=== PATIENT | female | born 1945 | race Caucasian/White ===

== ENCOUNTER 2019-09-10 06:10 | Day surgery (SDC) | payer MEDICARE ==
[2019-09-09 13:27] VITALS: BMI 22.4
[2019-09-10] MEDS ORDERED: Midazolam HCl 2 mg/2 ml Vial ONE (06:47)
[2019-09-10] MEDS ORDERED: Fentanyl 100 MCG/2 ML VIAL ONE ×2 (06:47→09:04)
[2019-09-10 07:00] LABS: #Basophils 0.1 thou/uL (0.0-0.2); #Eosinphils 0.4 thou/uL (0.0-0.7); #Lymphocytes 2.8 thou/uL (1.20-3.40); #Monocytes 0.7 thou/uL (0.11-0.59); #Neutrophils 6.6 thou/uL (1.40-6.50); %Basophils 1.3 % (0.0-1.0); %Eosinophils 4.1 % (0.0-10.0); %Lymphocytes 26.4 % (21.0-51.0); %Monocytes 6.7 % (0.0-10.0); %Neutrophils 61.6 % (42.0-75.0); Hemoglobin 15.6 g/dL (12.0-16.0); Mean Corpuscular Hemoglobin 31.1 pg (27.0-31.0); Mean Corpuscular Volume 94.3 fL (78.0-98.0); Mean Platelet Volume 7.7 fL (7.4-10.4); Platelet Count 234 thou/uL (130-400); RBC Distribution Width 12.2 % (11.5-14.5); Red Blood Cell (RBC) Count 5.03 mill/uL (4.20-5.40); White Blood Cell (WBC) Count 10.8 thou/uL (4.8-10.8)
[2019-09-10 07:21] LABS: Anion Gap 14 mmol/L (10-20); BUN (Urea Nitrogen) 13 mg/dL (9.8-20.1); Calc. Creatinine Clearance 55 mL/min (70-130); Calcium 9.6 mg/dL (7.8-10.44); Carbon Dioxide 28 mmol/L (23-31); Chloride 102 mmol/L (98-107); Estimated GFR-MDRD 64; Glucose 114 mg/dL (83-110); Potassium 3.6 mmol/L (3.5-5.1); Sodium 140 mmol/L (136-145)
[2019-09-10] MEDS ORDERED: Ondansetron HCl/PF 4 MG/2 ML Vial IVP PRN (09:05)
[2019-09-10] MEDS ORDERED: Promethazine HCl 25 MG/ML VIAL IM/IV PRN (09:05)
[2019-09-10] MEDS ORDERED: Non-Formulary Medication 1 EACH PO PRN (09:05)
[2019-09-10] MEDS ORDERED: HYDROcodone/Acetaminophen 5/325 mg Tablet ONE (10:49)
--- NOTE | 2019-09-10 11:47 | OP ---
DATE OF PROCEDURE: 09/10/2019 HOP PICKER: Tatiana Lloyd PA-C PROCEDURE PERFORMED: Left L5-S1 microdiskectomy. DESCRIPTION OF PROCEDURE: The patient was brought to the operating room and intubated. She was rolled in a prone position on gel-filled chest rolls. An incision was made exposing L5 and S1 on the left. The level was confirmed by x-ray. We performed left L5-S1 hemilaminectomy and removed via ligament and beneath the left S1 nerve root, found an extruded disk herniation that was removed in multiple fragments. Complete decompression of left S1 was achieved. The wound was extensively irrigated. MAC hemostasis was secured. Vancomycin powder was applied and the wound was closed in anatomical layers. Job ID: [id number]
[2019-09-10] MEDS ORDERED: PROPOFOL 200 MG/20 ML VIAL ONE (12:50)
[2019-09-10] MEDS ORDERED: Ondansetron PF 4 MG/2 ML Vial ONE (12:50)
[2019-09-10] MEDS ORDERED: Dexamethasone 20 MG/5 ML VIAL ONE (12:50)
[2019-09-10] MEDS ORDERED: Glycopyrrolate 0.2 MG/ML 5 ML SYRINGE ONE (12:50)
[2019-09-10] MEDS ORDERED: Rocuronium Bromide 10 MG/ML (10ML VIAL) ONE (12:50)
== END 2019-09-10 11:37 | disposition home or self-care (01) ==
LOC: SDC 06:10
PROVIDERS: ATTEND Neurological Surgery
PROC: 0SB20ZZ Excision of Lumbar Vertebral Disc, Open Approach (ICD-10-PCS; principal; 2019-09-10)
PROC: 01NB0ZZ Release Lumbar Nerve, Open Approach (ICD-10-PCS; 2019-09-10)
DX: M51.17 Intervertebral disc disorders with radiculopathy, lumbosacral region (principal); I10 Essential (primary) hypertension; E78.5 Hyperlipidemia, unspecified; Z79.82 Long term (current) use of aspirin; Z79.899 Other long term (current) drug therapy; Z88.2 Allergy status to sulfonamides; Z91.048 Other nonmedicinal substance allergy status
CPT/HCPCS: 76000; 80048; 85025; 93005; 93010; J0690; J1100; J2250; J2405; J2704; J3010; J3370

== ENCOUNTER 2021-07-21 10:04 | Outpatient (CLI) | payer MEDICARE | END 2021-07-21 10:05 | disposition home or self-care (01) | LOC: RAD 10:04 | PROVIDERS: ATTEND Internal Medicine Critical Care Medicine | DX: R06.00 Dyspnea, unspecified (principal); R91.8 Other nonspecific abnormal finding of lung field | CPT/HCPCS: 71046 ==

== ENCOUNTER 2021-07-27 11:29 | Outpatient (CLI) | payer MEDICARE ==
[2021-07-27 23:11] LABS: SARS-CoV-2 PCR by NAA Not Detected (NotDetected)
== END 2021-07-27 11:30 | disposition home or self-care (01) ==
LOC: LABBT 11:29
PROVIDERS: ATTEND Internal Medicine Critical Care Medicine
DX: Z20.822 Contact with and (suspected) exposure to COVID-19 (principal)
CPT/HCPCS: U0003; U0005

== ENCOUNTER 2021-08-09 08:41 | Day surgery (SDC) | payer MEDICARE ==
[2021-07-31 13:54] VITALS: BMI 23.3
[2021-08-09 08:58] LABS: #Basophils 0.1 thou/uL (0.0-0.2); #Eosinphils 0.3 thou/uL (0.0-0.7); #Lymphocytes 2.2 thou/uL (1.20-3.40); #Monocytes 1.1 thou/uL (0.11-0.59); #Neutrophils 12.8 thou/uL (1.40-6.50); %Basophils 0.5 % (0.0-1.0); %Eosinophils 1.8 % (0.0-10.0); %Lymphocytes 13.2 % (21.0-51.0); %Monocytes 6.4 % (0.0-10.0); %Neutrophils 78.2 % (42.0-75.0); Hemoglobin 14.4 g/dL (12.0-16.0); Mean Corpuscular HGB CONC 34.8 g/dL (32.0-36.0); Mean Corpuscular Hemoglobin 32.3 pg (27.0-31.0); Mean Corpuscular Volume 92.9 fL (78.0-98.0); Mean Platelet Volume 6.9 fL (7.4-10.4); Platelet Count 270 thou/uL (130-400); Red Blood Cell (RBC) Count 4.45 mill/uL (4.20-5.40); White Blood Cell (WBC) Count 16.4 thou/uL (4.8-10.8)
[2021-08-09 09:11] LABS: INR-International Normal Ratio 1.1; PTT 31.2 sec (22.9-36.1); Prothrombin Time 14.2 sec (12.0-14.7)
[2021-08-09 09:59] VITALS: BP 162/92; TEMP 97.8
== END 2021-08-09 14:20 | disposition home or self-care (01) ==
LOC: CT 08:41
PROVIDERS: ATTEND Internal Medicine Critical Care Medicine
PROC: 0BBG3ZX Excision of Left Upper Lung Lobe, Percutaneous Approach, Diagnostic (ICD-10-PCS; principal; 2021-08-09)
DX: C34.12 Malignant neoplasm of upper lobe, left bronchus or lung (principal); J43.9 Emphysema, unspecified; I10 Essential (primary) hypertension; E78.5 Hyperlipidemia, unspecified; I25.10 Atherosclerotic heart disease of native coronary artery without angina pectoris; K21.9 Gastro-esophageal reflux disease without esophagitis; Z87.891 Personal history of nicotine dependence; Z79.82 Long term (current) use of aspirin; Z79.899 Other long term (current) drug therapy; Z88.2 Allergy status to sulfonamides; Z91.048 Other nonmedicinal substance allergy status
CPT/HCPCS: 71045; 71250; 77012; 85025; 85610; 85730; 88305; 88333

== ENCOUNTER 2021-08-25 10:25 | Outpatient (CLI) | payer MEDICARE | END 2021-08-25 10:26 | disposition home or self-care (01) | LOC: PET 10:25 | PROVIDERS: ATTEND Internal Medicine Hematology & Oncology | DX: C34.02 Malignant neoplasm of left main bronchus (principal); C78.1 Secondary malignant neoplasm of mediastinum; C77.1 Secondary and unspecified malignant neoplasm of intrathoracic lymph nodes | CPT/HCPCS: 78815; A9552 ==

== ENCOUNTER 2021-08-30 12:28 | Outpatient (CLI) | payer MEDICARE | END 2021-08-30 12:29 | disposition home or self-care (01) | LOC: MRI 12:28 | PROVIDERS: ATTEND Internal Medicine Hematology & Oncology | DX: R26.89 Other abnormalities of gait and mobility (principal); C34.02 Malignant neoplasm of left main bronchus | CPT/HCPCS: 70553 ==

== ENCOUNTER 2021-10-23 10:14 | Inpatient (IN) | payer MEDICARE ==
[2021-10-23 11:06] LABS: Mean Corpuscular Hemoglobin 31.4 pg (27.0-31.0); Mean Corpuscular Volume 92.2 fL (78.0-98.0); RBC Distribution Width 14.3 % (11.5-14.5); Red Blood Cell (RBC) Count 3.83 mill/uL (4.20-5.40); White Blood Cell (WBC) Count 0.1 thou/uL (4.8-10.8)
[2021-10-23 11:14] LABS: INR-International Normal Ratio 1.3; Prothrombin Time 16.2 sec (12.0-14.7)
[2021-10-23 11:15] LABS: PTT 41.3 sec (22.9-36.1)
[2021-10-23 11:20] LABS: ALT (SGPT) 16 U/L (8-55); AST (SGOT) 36 U/L (5-34); Albumin 3.5 g/dL (3.4-4.8); Alkaline Phosphatase 59 U/L (40-110); Anion Gap 18 mmol/L (10-20); BUN (Urea Nitrogen) 31 mg/dL (9.8-20.1); Bilirubin, Total 0.7 mg/dL (0.2-1.2); Calc. Creatinine Clearance 0 mL/min (70-130); Calcium 9.5 mg/dL (7.8-10.44); Carbon Dioxide 26 mmol/L (23-31); Chloride 94 mmol/L (98-107); Globulin 3.7 g/dL (2.4-3.5); Glucose 118 mg/dL (83-110); Potassium 3.7 mmol/L (3.5-5.1); Protein, Total 7.2 g/dL (5.8-8.1); Sodium 134 mmol/L (136-145)
[2021-10-23] MEDS ORDERED: Vancomycin 1 GM/200 ML BAG ONE (11:27)
[2021-10-23] MEDS ORDERED: Cefepime 2 GM VIAL ONE (11:27)
[2021-10-23] MEDS ORDERED: Iopamidol-370 76% 500 ML 1 ML ONE (11:36)
[2021-10-23 11:41] LABS: MDiff Complete? YES; Mean Platelet Volume 9.4 fL (7.4-10.4); Platelet Count 55 thou/uL (130-400); Platelet Morphology Comment Appears Decreased; Polychromasia SLIGHT = 2-3 cells (100X) (0-2/hpf)
[2021-10-23 11:58] LABS: CK (CPK) 386 U/L (29-168); Magnesium 1.4 mg/dL (1.6-2.6)
[2021-10-23] MEDS ORDERED: Lorazepam 1 MG TAB ONE (13:08)
[2021-10-23] MEDS ORDERED: Magnesium 2 GM/50 ML 2 GM in Premix Bag 1 BAG IVPB SCH (15:45)
[2021-10-23] MEDS ORDERED: Magnesium 2 GM/50 ML BAG (IN WATER) ONE (16:09)
[2021-10-23] MEDS ORDERED: Ondansetron ODT 4 MG TAB PO PRN (16:48)
[2021-10-23] MEDS ORDERED: Ondansetron PF 4 MG/2 ML Vial IVP PRN (16:48)
[2021-10-23] MEDS: Sodium Chloride 0.9% 1,000 ML IV SCH (17:06)
[2021-10-23 17:12] LABS: Clarity Clear (Clear); Specific Gravity, Urine 1.031 (1.002-1.036)
[2021-10-23 17:13] LABS: Bacteria/HPF Rare-Few HPF (None Seen); Bilirubin Negative (Negative); Blood, Urine Trace (Negative); Glucose, Urine (Dipstick) Normal (Negative); Ketone, Urine Negative (Negative); Leukocyte Negative Leu/uL (Negative); Nitrite Negative (Negative); Protein, Urine (Dipstick) 100 mg/dL (Neg-Trace); RBC/HPF 0-3 HPF (0-3); Squamous Epithelial 0-3 HPF (0-3); Urobilinogen Normal mg/dL (Less than 2); WBC/HPF 0-3 HPF (0-3); pH, Urine 5.5 (5.0-9.0)
[2021-10-23] MEDS ORDERED: Famotidine 20 MG TAB PO SCH (21:00)
[2021-10-23] MEDS ORDERED: Famotidine/PF 20 mg/2ml Vial ONE (21:11)
[2021-10-24] MEDS ORDERED: Lisinopril 10 MG TAB ONE (08:46)
[2021-10-24] MEDS ORDERED: Hydrochlorothiazide 25 MG TAB PO SCH (09:00)
[2021-10-24] MEDS ORDERED: Enoxaparin Sodium 40 MG/0.4 ML SYRINGE SC SCH (09:00)
[2021-10-24] MEDS ORDERED: Lisinopril 10 MG TAB PO SCH (09:00)
[2021-10-24] MEDS ORDERED: Pantoprazole 40 MG VIAL IVP SCH (09:15)
[2021-10-24 09:33] LABS: Anion Gap 16 mmol/L (10-20); BUN (Urea Nitrogen) 18 mg/dL (9.8-20.1); Calc. Creatinine Clearance 0 mL/min (70-130); Carbon Dioxide 21 mmol/L (23-31); Chloride 105 mmol/L (98-107); Glucose 98 mg/dL (83-110); Magnesium 1.6 mg/dL (1.6-2.6); Potassium 3.4 mmol/L (3.5-5.1); Sodium 139 mmol/L (136-145)
[2021-10-24 09:34] LABS: Hemoglobin 10.8 g/dL (12.0-16.0); Mean Corpuscular HGB CONC 33.1 g/dL (32.0-36.0); Mean Corpuscular Hemoglobin 31.2 pg (27.0-31.0); Mean Corpuscular Volume 94.1 fL (78.0-98.0); Mean Platelet Volume 9.5 fL (7.4-10.4); Platelet Count 41 thou/uL (130-400); RBC Distribution Width 14.3 % (11.5-14.5); Red Blood Cell (RBC) Count 3.45 mill/uL (4.20-5.40); White Blood Cell (WBC) Count 0.2 thou/uL (4.8-10.8)
[2021-10-24 10:04] LABS: MDiff Complete? YES; Platelet Morphology Comment Appears Decreased; Polychromasia SLIGHT = 2-3 cells (100X) (0-2/hpf)
[2021-10-24] MEDS ORDERED: Pantoprazole 40 MG VIAL ONE ×2 (10:22→23:43)
[2021-10-24] MEDS ORDERED: cefTRIAXone\\ROCEPHIN 1 GM in Sodium Chloride 0.9% 100 ML IVPB SCH (11:00)
[2021-10-24] MEDS ORDERED: Sucralfate 1 GM/10 ML UDCUP ONE ×2 (13:05→18:22)
[2021-10-24] MEDS ORDERED: methylPREDNISolone Sod Succ 40 MG VIAL ONE ×2 (13:05→18:22)
[2021-10-24] MEDS: Sucralfate 1 GM/10 ML UDCUP PO SCH ×2 (13:10→18:42)
[2021-10-24] MEDS ORDERED: cefTRIAXone\\ROCEPHIN 1 GM VIAL ONE (13:21)
[2021-10-24] MEDS: Sodium Chloride 0.9% 1,000 ML IV SCH ×2 (13:34→22:57)
[2021-10-24] MEDS: methylPREDNISolone Sod Succ 40 MG VIAL IVP SCH ×2 (13:35→18:42)
[2021-10-24] MEDS: Pantoprazole 40 MG VIAL IVP SCH (23:46)
[2021-10-25] MEDS: methylPREDNISolone Sod Succ 40 MG VIAL IVP SCH ×4 (05:21→17:48)
[2021-10-25] MEDS: Sucralfate 1 GM/10 ML UDCUP PO SCH ×3 (06:16→17:50)
[2021-10-25] MEDS: Sodium Chloride 0.9% 1,000 ML IV SCH ×3 (06:16→17:50)
[2021-10-25] MEDS ORDERED: Senokot S 8.6-50 MG TAB PO PRN (08:15)
[2021-10-25] MEDS ORDERED: Nitroglycerin 0.4 MG TAB (25 Tab Bottle) SL PRN (08:39)
[2021-10-25] MEDS: Pantoprazole 40 MG VIAL IVP SCH ×2 (09:35→21:11)
[2021-10-25] MEDS: Metoprolol Tartrate 25 MG TAB PO SCH ×2 (09:36→21:11)
[2021-10-25] MEDS: Cefepime 2 GM in Sodium Chloride 0.9% 100 ML IVPB SCH ×2 (09:36→17:49)
[2021-10-25 10:02] LABS: Troponin I 0.013 ng/mL (< 0.028)
[2021-10-25 10:13] LABS: ALT (SGPT) 25 U/L (8-55); AST (SGOT) 55 U/L (5-34); Albumin 2.7 g/dL (3.4-4.8); Alkaline Phosphatase 61 U/L (40-110); Anion Gap 17 mmol/L (10-20); BUN (Urea Nitrogen) 23 mg/dL (9.8-20.1); Bilirubin, Total 0.6 mg/dL (0.2-1.2); Calc. Creatinine Clearance 80 mL/min (70-130); Calcium 9.2 mg/dL (7.8-10.44); Carbon Dioxide 16 mmol/L (23-31); Chloride 106 mmol/L (98-107); Glucose 125 mg/dL (83-110); Magnesium 1.5 mg/dL (1.6-2.6); Phosphorus 2.9 mg/dL (2.3-4.7); Potassium 3.4 mmol/L (3.5-5.1); Protein, Total 6.7 g/dL (5.8-8.1); Sodium 136 mmol/L (136-145)
[2021-10-25] MEDS ORDERED: Vancomycin 1 GM in Premix Bag 1 BAG IVPB SCH (10:15)
[2021-10-25] MEDS ORDERED: Magnesium Sulfate 4 GM in Sodium Chloride 0.9% 250 ML 250 ML IVPB SCH (10:30)
[2021-10-25 10:35] LABS: Hemoglobin 11.3 g/dL (12.0-16.0); MDiff Complete? YES; Mean Corpuscular Volume 93.7 fL (78.0-98.0); Mean Platelet Volume 10.8 fL (7.4-10.4); Platelet Count 39 thou/uL (130-400); Platelet Morphology Comment Appears Decreased; Polychromasia SLIGHT = 2-3 cells (100X) (0-2/hpf); RBC Distribution Width 14.2 % (11.5-14.5); Red Blood Cell (RBC) Count 3.77 mill/uL (4.20-5.40); White Blood Cell (WBC) Count 0.3 thou/uL (4.8-10.8)
[2021-10-25 12:33] LABS: SARS-CoV-2 PCR by NAA DETECTED (NotDetected)
[2021-10-25] MEDS: Vancomycin 1.5 GRAM/300 ML BAG 1.5 GM in Premix Bag 1 BAG IVPB SCH (13:30)
[2021-10-25] MEDS ORDERED: Potassium Chloride 20 MEQ TAB PO SCH (16:30)
[2021-10-25] MEDS ORDERED: REMDESIVIR 200 MG in Sodium Chloride 0.9% 250 ML 210 ML IV SCH (16:30)
[2021-10-25 18:57] LABS: SARS-CoV-2 IgG Spike Ab Interp Reactive (NonReactive); SARS-CoV-2 IgG Spike Conc/Indx 252.4 AU/mL (0.00-50.0)
[2021-10-26] MEDS: Cefepime 2 GM in Sodium Chloride 0.9% 100 ML IVPB SCH ×3 (00:18→17:07)
[2021-10-26] MEDS: Albuterol 200 PUFF (6.7GM INHALER) INH PRN ×2 (03:54→21:46)
[2021-10-26] MEDS: Sodium Chloride 0.9% 1,000 ML IV SCH ×2 (03:54→14:38)
[2021-10-26 05:27] LABS: Mean Corpuscular HGB CONC 33.8 g/dL (32.0-36.0); Mean Corpuscular Hemoglobin 31.6 pg (27.0-31.0); Mean Corpuscular Volume 93.4 fL (78.0-98.0); Mean Platelet Volume 11.6 fL (7.4-10.4); Platelet Count 57 thou/uL (130-400); RBC Distribution Width 14.5 % (11.5-14.5); Red Blood Cell (RBC) Count 3.48 mill/uL (4.20-5.40); White Blood Cell (WBC) Count 0.4 thou/uL (4.8-10.8)
[2021-10-26 05:51] LABS: ALT (SGPT) 24 U/L (8-55); AST (SGOT) 45 U/L (5-34); Albumin 2.8 g/dL (3.4-4.8); Alkaline Phosphatase 60 U/L (40-110); Anion Gap 16 mmol/L (10-20); BUN (Urea Nitrogen) 28 mg/dL (9.8-20.1); Bilirubin, Total 0.4 mg/dL (0.2-1.2); Calc. Creatinine Clearance 79 mL/min (70-130); Calcium 9.3 mg/dL (7.8-10.44); Carbon Dioxide 20 mmol/L (23-31); Chloride 107 mmol/L (98-107); Globulin 3.9 g/dL (2.4-3.5); Glucose 124 mg/dL (83-110); Magnesium 1.5 mg/dL (1.6-2.6); Phosphorus 1.8 mg/dL (2.3-4.7); Potassium 3.9 mmol/L (3.5-5.1); Protein, Total 6.7 g/dL (5.8-8.1); Sodium 139 mmol/L (136-145)
[2021-10-26 06:03] LABS: Burr Cells MARKED = >16 cells (100X) (0-1/hpf); MDiff Complete? YES; Platelet Morphology Comment Appears Decreased; Polychromasia SLIGHT = 2-3 cells (100X) (0-2/hpf); Reflex for Review?? YES
[2021-10-26] MEDS ORDERED: Potassium Phosphate 15 MMOL in Sodium Chloride 0.9% 250 ML 250 ML IVPB SCH (08:00)
[2021-10-26] MEDS ORDERED: Magnesium Sulfate 4 GM in Sodium Chloride 0.9% 250 ML 250 ML IVPB SCH (08:00)
[2021-10-26] MEDS: Pantoprazole 40 MG VIAL IVP SCH ×2 (09:30→21:48)
[2021-10-26] MEDS: Potassium Bicarbonate/Cit Ac 20 MEQ TAB PO SCH ×2 (09:30→17:08)
[2021-10-26] MEDS: Dexamethasone 10 MG/ML VIAL SLOW IVP SCH (09:30)
[2021-10-26] MEDS: Metoprolol Tartrate 25 MG TAB PO SCH ×2 (09:31→21:48)
[2021-10-26] MEDS: Vancomycin 1.5 GRAM/300 ML BAG 1.5 GM in Premix Bag 1 BAG IVPB SCH (11:46)
[2021-10-26] MEDS: Acetaminophen 325 MG TAB PO PRN (21:47)
[2021-10-26] MEDS: REMDESIVIR 100 MG in Sodium Chloride 0.9% 250 ML 230 ML IV SCH (21:47)
[2021-10-27] MEDS: Cefepime 2 GM in Sodium Chloride 0.9% 100 ML IVPB SCH ×3 (00:16→16:40)
[2021-10-27] MEDS: HYDROcodone/Acetaminophen 5/325 mg Tablet PO PRN (00:17)
[2021-10-27] MEDS: Albuterol 200 PUFF (6.7GM INHALER) INH PRN ×2 (04:29→11:02)
[2021-10-27] MEDS: Sodium Chloride 0.9% 1,000 ML IV SCH ×2 (04:30→15:22)
[2021-10-27] MEDS ORDERED: Dexamethasone 4 MG TAB PO SCH (10:15)
[2021-10-27] MEDS: Potassium Bicarbonate/Cit Ac 20 MEQ TAB PO SCH ×3 (10:48→17:03)
[2021-10-27] MEDS: Metoprolol Tartrate 25 MG TAB PO SCH ×2 (10:48→21:09)
[2021-10-27] MEDS: Dexamethasone 10 MG/ML VIAL SLOW IVP SCH (11:12)
[2021-10-27] MEDS: Pantoprazole 40 MG VIAL IVP SCH (11:13)
[2021-10-27 11:21] LABS: ALT (SGPT) 27 U/L (8-55); AST (SGOT) 47 U/L (5-34); Albumin 2.8 g/dL (3.4-4.8); Alkaline Phosphatase 63 U/L (40-110); Anion Gap 21 mmol/L (10-20); BUN (Urea Nitrogen) 24 mg/dL (9.8-20.1); Bilirubin, Total 0.6 mg/dL (0.2-1.2); Calc. Creatinine Clearance 62 mL/min (70-130); Calcium 9.4 mg/dL (7.8-10.44); Carbon Dioxide 19 mmol/L (23-31); Chloride 108 mmol/L (98-107); Globulin 3.8 g/dL (2.4-3.5); Glucose 120 mg/dL (83-110); Magnesium 2.2 mg/dL (1.6-2.6); Phosphorus 2.6 mg/dL (2.3-4.7); Potassium 3.1 mmol/L (3.5-5.1); Protein, Total 6.6 g/dL (5.8-8.1); Sodium 145 mmol/L (136-145)
[2021-10-27] MEDS ORDERED: ALPRAZolam 0.25 MG TAB PO SCH (11:45)
[2021-10-27] MEDS: Vancomycin 1.5 GRAM/300 ML BAG 1.5 GM in Premix Bag 1 BAG IVPB SCH (11:45)
[2021-10-27 14:31] LABS: Hemoglobin 10.7 g/dL (12.0-16.0); Mean Corpuscular HGB CONC 33.2 g/dL (32.0-36.0); Mean Corpuscular Hemoglobin 31.7 pg (27.0-31.0); Mean Corpuscular Volume 95.6 fL (78.0-98.0); Mean Platelet Volume 11.3 fL (7.4-10.4); Platelet Count 61 thou/uL (130-400); RBC Distribution Width 14.8 % (11.5-14.5); Red Blood Cell (RBC) Count 3.39 mill/uL (4.20-5.40); White Blood Cell (WBC) Count 2.1 thou/uL (4.8-10.8)
[2021-10-27 16:05] LABS: Anisocytosis SLIGHT = 6-15 cells (100X) (0-5/hpf); Band 25 % (5-11); Large Platelets SLIGHT; Lymphocytes 11 % (21-51); MDiff Complete? YES; Metamyelocyte 4 % (0-0); Monocytes 10 % (0-10); Neutrophil 48 % (42-75); Nucleated RBC 1 % (0); Platelet Morphology Comment Appears Decreased; Polychromasia SLIGHT = 2-3 cells (100X) (0-2/hpf); Reactive Lymphocytes 2 % (0-10)
[2021-10-27] MEDS: 1/2 NS w/KCL 20 mEq 1,000 ML IV SCH (16:40)
[2021-10-27] MEDS: Dexamethasone 4 MG TAB PO SCH ×2 (16:40→17:02)
[2021-10-27] MEDS: REMDESIVIR 100 MG in Sodium Chloride 0.9% 250 ML 230 ML IV SCH (21:07)
[2021-10-27] MEDS: ALPRAZolam 0.25 MG TAB PO PRN ×2 (21:09→21:44)
[2021-10-28] MEDS: HYDROcodone/Acetaminophen 5/325 mg Tablet PO PRN ×2 (00:22→19:51)
[2021-10-28] MEDS: Cefepime 2 GM in Sodium Chloride 0.9% 100 ML IVPB SCH ×2 (00:22→10:16)
[2021-10-28] MEDS: 1/2 NS w/KCL 20 mEq 1,000 ML IV SCH (03:36)
[2021-10-28] MEDS ORDERED: 1/2 NS w/KCL 20 mEq 1,000 ML IV SCH (09:02)
[2021-10-28] MEDS ORDERED: Furosemide 20 MG/2 ML VIAL SLOW IVP SCH (09:15)
[2021-10-28] MEDS: ALPRAZolam 0.25 MG TAB PO PRN (10:17)
[2021-10-28] MEDS: Metoprolol Tartrate 25 MG TAB PO SCH ×2 (10:17→19:51)
[2021-10-28] MEDS: Dexamethasone 4 MG TAB PO SCH ×2 (10:17→16:53)
[2021-10-28] MEDS: Vancomycin 1.5 GRAM/300 ML BAG 1.5 GM in Premix Bag 1 BAG IVPB SCH (12:19)
[2021-10-28] MEDS: Potassium Bicarbonate/Cit Ac 20 MEQ TAB PO SCH ×3 (12:20→16:54)
[2021-10-28] MEDS: cefTRIAXone\\ROCEPHIN 2 GM in Sodium Chloride 0.9% 100 ML IVPB SCH (16:52)
[2021-10-28 18:36] LABS: Phosphorus 2.9 mg/dL (2.3-4.7)
[2021-10-28 18:39] LABS: ALT (SGPT) 29 U/L (8-55); AST (SGOT) 51 U/L (5-34); Albumin 2.9 g/dL (3.4-4.8); Alkaline Phosphatase 72 U/L (40-110); Anion Gap 17 mmol/L (10-20); BUN (Urea Nitrogen) 20 mg/dL (9.8-20.1); Bilirubin, Total 0.8 mg/dL (0.2-1.2); Calc. Creatinine Clearance 64 mL/min (70-130); Carbon Dioxide 22 mmol/L (23-31); Chloride 105 mmol/L (98-107); Globulin 3.4 g/dL (2.4-3.5); Glucose 87 mg/dL (83-110); Hemoglobin 10.3 g/dL (12.0-16.0); Magnesium 1.3 mg/dL (1.6-2.6); Mean Corpuscular HGB CONC 33.1 g/dL (32.0-36.0); Mean Corpuscular Hemoglobin 30.8 pg (27.0-31.0); Mean Corpuscular Volume 93.1 fL (78.0-98.0); Mean Platelet Volume 10.6 fL (7.4-10.4); Platelet Count 87 thou/uL (130-400); Potassium 3.3 mmol/L (3.5-5.1); Protein, Total 6.3 g/dL (5.8-8.1); Red Blood Cell (RBC) Count 3.34 mill/uL (4.20-5.40); Sodium 141 mmol/L (136-145)
[2021-10-28] MEDS ORDERED: Magnesium Sulfate 4 GM in Sodium Chloride 0.9% 250 ML 250 ML IVPB SCH (19:00)
[2021-10-28 19:05] LABS: Anisocytosis SLIGHT = 6-15 cells (100X) (0-5/hpf); Band 10 % (5-11); Large Platelets SLIGHT; Lymphocytes 8 % (21-51); MDiff Complete? YES; Metamyelocyte 1 % (0-0); Monocytes 12 % (0-10); Neutrophil 69 % (42-75); Platelet Morphology Comment Appears Decreased; Polychromasia SLIGHT = 2-3 cells (100X) (0-2/hpf); White Blood Cell (WBC) Count 5.1 thou/uL (4.8-10.8)
[2021-10-28] MEDS ORDERED: Potassium Bicarbonate/Cit Ac 20 MEQ TAB PO SCH (21:00)
[2021-10-28] MEDS: Amino Acids 4.25 %/Dextrose 5% 1,000 ML IV SCH (22:41)
[2021-10-29 05:34] LABS: Band 6 % (5-11); Hemoglobin 11.1 g/dL (12.0-16.0); Hypochromia SLIGHT = 6-15 cells (100X) (0-5/hpf); Lymphocytes 16 % (21-51); MDiff Complete? YES; Mean Corpuscular Hemoglobin 31.1 pg (27.0-31.0); Mean Corpuscular Volume 94.1 fL (78.0-98.0); Mean Platelet Volume 10.6 fL (7.4-10.4); Monocytes 11 % (0-10); Neutrophil 66 % (42-75); Platelet Count 81 thou/uL (130-400); Platelet Morphology Comment Appears Decreased; Reactive Lymphocytes 1 % (0-10); Red Blood Cell (RBC) Count 3.57 mill/uL (4.20-5.40); White Blood Cell (WBC) Count 4.7 thou/uL (4.8-10.8)
[2021-10-29 05:47] LABS: ALT (SGPT) 29 U/L (8-55); AST (SGOT) 37 U/L (5-34); Albumin 2.8 g/dL (3.4-4.8); Alkaline Phosphatase 76 U/L (40-110); Anion Gap 17 mmol/L (10-20); BUN (Urea Nitrogen) 25 mg/dL (9.8-20.1); Bilirubin, Total 0.6 mg/dL (0.2-1.2); Calc. Creatinine Clearance 67 mL/min (70-130); Calcium 8.8 mg/dL (7.8-10.44); Carbon Dioxide 23 mmol/L (23-31); Chloride 104 mmol/L (98-107); Globulin 3.3 g/dL (2.4-3.5); Glucose 143 mg/dL (83-110); Magnesium 2.5 mg/dL (1.6-2.6); Phosphorus 3.1 mg/dL (2.3-4.7); Protein, Total 6.1 g/dL (5.8-8.1); Sodium 141 mmol/L (136-145)
[2021-10-29 05:56] LABS: Potassium 2.8 mmol/L (3.5-5.1)
[2021-10-29] MEDS ORDERED: Potassium Chloride 20 MEQ TAB PO SCH ×2 (06:15→15:30)
[2021-10-29] MEDS ORDERED: Potassium Chloride 20 MEQ in Premix Bag 1 BAG IVPB SCH (06:45)
[2021-10-29] MEDS: Dexamethasone 4 MG TAB PO SCH ×2 (10:48→17:34)
[2021-10-29] MEDS: Potassium Chloride 20 MEQ TAB PO SCH ×2 (10:48→11:26)
[2021-10-29] MEDS: Metoprolol Tartrate 25 MG TAB PO SCH ×3 (10:49→21:52)
[2021-10-29] MEDS: Potassium Chloride 20 MEQ in Premix Bag 1 BAG IVPB SCH ×2 (10:50→15:48)
[2021-10-29 15:10] LABS: Potassium 3.1 mmol/L (3.5-5.1)
[2021-10-29] MEDS ORDERED: Potassium Phosphate 30 MMOL in Sodium Chloride 0.9% 250 ML 250 ML IVPB SCH (15:30)
[2021-10-29] MEDS: cefTRIAXone\\ROCEPHIN 2 GM in Sodium Chloride 0.9% 100 ML IVPB SCH (17:34)
[2021-10-30 08:25] LABS: Hemoglobin 10.2 g/dL (12.0-16.0); Mean Corpuscular HGB CONC 33.1 g/dL (32.0-36.0); Mean Corpuscular Hemoglobin 31.1 pg (27.0-31.0); Mean Corpuscular Volume 93.9 fL (78.0-98.0); Mean Platelet Volume 10.2 fL (7.4-10.4); Platelet Count 104 thou/uL (130-400); Red Blood Cell (RBC) Count 3.27 mill/uL (4.20-5.40)
[2021-10-30 08:51] LABS: ALT (SGPT) 21 U/L (8-55); AST (SGOT) 32 U/L (5-34); Albumin 2.8 g/dL (3.4-4.8); Alkaline Phosphatase 77 U/L (40-110); Anion Gap 15 mmol/L (10-20); BUN (Urea Nitrogen) 31 mg/dL (9.8-20.1); Bilirubin, Total 0.7 mg/dL (0.2-1.2); Calc. Creatinine Clearance 61 mL/min (70-130); Calcium 8.2 mg/dL (7.8-10.44); Carbon Dioxide 24 mmol/L (23-31); Chloride 105 mmol/L (98-107); Globulin 2.9 g/dL (2.4-3.5); Glucose 151 mg/dL (83-110); Potassium 3.5 mmol/L (3.5-5.1); Protein, Total 5.7 g/dL (5.8-8.1); Sodium 140 mmol/L (136-145)
[2021-10-30 08:55] LABS: Magnesium 1.5 mg/dL (1.6-2.6)
[2021-10-30] MEDS: Metoprolol Tartrate 25 MG TAB PO SCH ×4 (09:49→15:33)
[2021-10-30] MEDS: Dexamethasone 4 MG TAB PO SCH ×2 (09:50→16:06)
[2021-10-30] MEDS ORDERED: Magnesium Sulfate 4 GM in Sodium Chloride 0.9% 250 ML 250 ML IVPB SCH (11:00)
[2021-10-30 11:53] LABS: Band 20 % (5-11); Lymphocytes 8 % (21-51); MDiff Complete? YES; Metamyelocyte 3 % (0-0); Monocytes 15 % (0-10); Myelocyte 1 % (0-0); Neutrophil 53 % (42-75); Nucleated RBC 1 % (0); Platelet Morphology Comment Appears Adequate; Polychromasia SLIGHT = 2-3 cells (100X) (0-2/hpf)
[2021-10-30] MEDS: cefTRIAXone\\ROCEPHIN 2 GM in Sodium Chloride 0.9% 100 ML IVPB SCH (15:33)
[2021-10-31] MEDS: Amino Acids 4.25 %/Dextrose 5% 1,000 ML IV SCH (00:09)
[2021-10-31] MEDS: ALPRAZolam 0.25 MG TAB PO PRN ×2 (00:16→09:46)
[2021-10-31] MEDS ORDERED: Sterile Water 10 ML VIAL FS PRN (02:45)
[2021-10-31] MEDS ORDERED: OLANZapine 10 MG VIAL IM SCH (02:45)
[2021-10-31 04:34] LABS: Hemoglobin 9.4 g/dL (12.0-16.0); Mean Corpuscular HGB CONC 31.9 g/dL (32.0-36.0); Mean Corpuscular Hemoglobin 30.7 pg (27.0-31.0); Mean Corpuscular Volume 96.1 fL (78.0-98.0); Mean Platelet Volume 9.6 fL (7.4-10.4); Platelet Count 104 thou/uL (130-400); RBC Distribution Width 15.2 % (11.5-14.5); Red Blood Cell (RBC) Count 3.06 mill/uL (4.20-5.40); White Blood Cell (WBC) Count 6.1 thou/uL (4.8-10.8)
[2021-10-31 04:43] LABS: Band 6 % (5-11); Hypochromia SLIGHT = 6-15 cells (100X) (0-5/hpf); Lymphocytes 16 % (21-51); MDiff Complete? YES; Monocytes 3 % (0-10); Neutrophil 75 % (42-75); Platelet Morphology Comment Appears Decreased
[2021-10-31 04:47] LABS: ALT (SGPT) 17 U/L (8-55); AST (SGOT) 27 U/L (5-34); Albumin 2.4 g/dL (3.4-4.8); Alkaline Phosphatase 65 U/L (40-110); Anion Gap 13 mmol/L (10-20); BUN (Urea Nitrogen) 27 mg/dL (9.8-20.1); Bilirubin, Total 0.6 mg/dL (0.2-1.2); CRP (Inflammatory) 9.74 mg/dL (= or < 0.5); Calc. Creatinine Clearance 64 mL/min (70-130); Calcium 7.9 mg/dL (7.8-10.44); Carbon Dioxide 20 mmol/L (23-31); Chloride 106 mmol/L (98-107); Globulin 2.7 g/dL (2.4-3.5); Glucose 130 mg/dL (83-110); Magnesium 1.8 mg/dL (1.6-2.6); Phosphorus 3.1 mg/dL (2.3-4.7); Protein, Total 5.1 g/dL (5.8-8.1); Sodium 135 mmol/L (136-145)
[2021-10-31] MEDS: Dexamethasone 4 MG TAB PO SCH (09:46)
[2021-10-31] MEDS: Metoprolol Tartrate 25 MG TAB PO SCH ×3 (09:46→21:33)
[2021-10-31] MEDS: cefTRIAXone\\ROCEPHIN 2 GM in Sodium Chloride 0.9% 100 ML IVPB SCH (16:25)
[2021-11-01] MEDS: Metoprolol Tartrate 25 MG TAB PO SCH ×3 (08:39→20:19)
[2021-11-01] MEDS: Dexamethasone 4 MG TAB PO SCH (08:39)
[2021-11-01] MEDS: cefTRIAXone\\ROCEPHIN 2 GM in Sodium Chloride 0.9% 100 ML IVPB SCH (16:55)
[2021-11-01] MEDS: Amino Acids 4.25 %/Dextrose 5% 1,000 ML IV SCH (17:35)
[2021-11-02] MEDS: Metoprolol Tartrate 25 MG TAB PO SCH ×3 (08:59→21:29)
[2021-11-02] MEDS: Dexamethasone 4 MG TAB PO SCH (09:00)
[2021-11-02] MEDS ORDERED: Tamsulosin HCl 0.4 MG CAP PO SCH ×2 (10:23→10:30)
[2021-11-02] MEDS: Amino Acids 4.25 %/Dextrose 5% 2,000 ML IV SCH (13:06)
[2021-11-02] MEDS: cefTRIAXone\\ROCEPHIN 2 GM in Sodium Chloride 0.9% 100 ML IVPB SCH (15:42)
[2021-11-02] MEDS: Benzonatate 100 MG CAP PO SCH (21:28)
[2021-11-02] MEDS: guaiFENesin ER 600 MG TAB PO SCH (21:29)
[2021-11-03 05:26] LABS: #Lymphocytes 1.2 thou/uL (1.20-3.40); #Monocytes 0.7 thou/uL (0.11-0.59); #Neutrophils 6.2 thou/uL (1.40-6.50); %Basophils 0.1 % (0.0-1.0); %Eosinophils 0.4 % (0.0-10.0); %Lymphocytes 14.7 % (21.0-51.0); %Monocytes 8.6 % (0.0-10.0); %Neutrophils 76.3 % (42.0-75.0); Hemoglobin 8.6 g/dL (12.0-16.0); Mean Corpuscular HGB CONC 32.5 g/dL (32.0-36.0); Mean Corpuscular Hemoglobin 30.1 pg (27.0-31.0); Mean Corpuscular Volume 92.5 fL (78.0-98.0); Platelet Count 149 thou/uL (130-400); RBC Distribution Width 15.1 % (11.5-14.5); Red Blood Cell (RBC) Count 2.88 mill/uL (4.20-5.40); White Blood Cell (WBC) Count 8.1 thou/uL (4.8-10.8)
[2021-11-03 05:37] LABS: Anion Gap 10 mmol/L (10-20); BUN (Urea Nitrogen) 28 mg/dL (9.8-20.1); CRP (Inflammatory) 10.11 mg/dL (= or < 0.5); Calc. Creatinine Clearance 61 mL/min (70-130); Carbon Dioxide 21 mmol/L (23-31); Chloride 107 mmol/L (98-107); Glucose 132 mg/dL (83-110); Potassium 3.2 mmol/L (3.5-5.1); Sodium 135 mmol/L (136-145)
[2021-11-03] MEDS ORDERED: Potassium Chloride 20 MEQ TAB PO SCH (07:30)
[2021-11-03] MEDS: Tamsulosin HCl 0.4 MG CAP PO SCH ×2 (08:13→08:24)
[2021-11-03] MEDS: Benzonatate 100 MG CAP PO SCH ×3 (08:14→20:57)
[2021-11-03] MEDS: Metoprolol Tartrate 25 MG TAB PO SCH ×3 (08:15→20:57)
[2021-11-03] MEDS: Dexamethasone 4 MG TAB PO SCH (08:15)
[2021-11-03] MEDS: guaiFENesin ER 600 MG TAB PO SCH ×3 (08:16→21:00)
[2021-11-03] MEDS: cefTRIAXone\\ROCEPHIN 2 GM in Sodium Chloride 0.9% 100 ML IVPB SCH (16:22)
[2021-11-03] MEDS: ALPRAZolam 0.25 MG TAB PO PRN (20:57)
[2021-11-04 04:59] LABS: #Lymphocytes 1.8 thou/uL (1.20-3.40); #Neutrophils 6.9 thou/uL (1.40-6.50); %Eosinophils 0.5 % (0.0-10.0); %Lymphocytes 18.2 % (21.0-51.0); %Monocytes 9.9 % (0.0-10.0); %Neutrophils 71.4 % (42.0-75.0); Mean Corpuscular HGB CONC 32.8 g/dL (32.0-36.0); Mean Corpuscular Hemoglobin 30.4 pg (27.0-31.0); Mean Corpuscular Volume 92.8 fL (78.0-98.0); Platelet Count 170 thou/uL (130-400); RBC Distribution Width 15.3 % (11.5-14.5); Red Blood Cell (RBC) Count 2.97 mill/uL (4.20-5.40); White Blood Cell (WBC) Count 9.6 thou/uL (4.8-10.8)
[2021-11-04 05:01] LABS: Carbon Dioxide 17 mmol/L (23-31); Glucose 89 mg/dL (83-110)
[2021-11-04 05:18] LABS: Chloride 109 mmol/L (98-107); Potassium 3.3 mmol/L (3.5-5.1); Sodium 137 mmol/L (136-145)
[2021-11-04 05:19] LABS: Calcium 8.3 mg/dL (7.8-10.44)
[2021-11-04 05:21] LABS: Anion Gap 12 mmol/L (10-20)
[2021-11-04 05:23] LABS: BUN (Urea Nitrogen) 31 mg/dL (9.8-20.1); Calc. Creatinine Clearance 54 mL/min (70-130)
[2021-11-04 05:24] LABS: Magnesium 1.3 mg/dL (1.6-2.6)
[2021-11-04] MEDS ORDERED: Electrolyte Replacement Protocol 1 EACH FS SCH (06:15)
[2021-11-04] MEDS ORDERED: Potassium Chloride 20 MEQ TAB PO SCH (06:30)
[2021-11-04] MEDS: Magnesium 2 GM/50 ML 2 GM in Premix Bag 1 BAG IVPB SCH ×2 (06:41→09:43)
[2021-11-04] MEDS: Dexamethasone 4 MG TAB PO SCH (09:44)
[2021-11-04] MEDS: Benzonatate 100 MG CAP PO SCH ×3 (09:44→22:25)
[2021-11-04] MEDS: Metoprolol Tartrate 25 MG TAB PO SCH ×2 (09:44→22:25)
[2021-11-04] MEDS: guaiFENesin ER 600 MG TAB PO SCH ×2 (09:46→20:34)
[2021-11-04] MEDS: Tamsulosin HCl 0.4 MG CAP PO SCH (09:47)
[2021-11-04] MEDS: Potassium Chloride 20 MEQ in Premix Bag 1 BAG IVPB SCH ×2 (11:34→18:52)
[2021-11-04] MEDS: cefTRIAXone\\ROCEPHIN 2 GM in Sodium Chloride 0.9% 100 ML IVPB SCH (17:41)
[2021-11-05 05:35] LABS: #Eosinphils 0.1 thou/uL (0.0-0.7); #Lymphocytes 1.3 thou/uL (1.20-3.40); #Monocytes 0.9 thou/uL (0.11-0.59); #Neutrophils 7.1 thou/uL (1.40-6.50); %Basophils 0.1 % (0.0-1.0); %Eosinophils 0.6 % (0.0-10.0); %Lymphocytes 14.2 % (21.0-51.0); %Monocytes 9.6 % (0.0-10.0); %Neutrophils 75.6 % (42.0-75.0); Hemoglobin 9.2 g/dL (12.0-16.0); Mean Corpuscular HGB CONC 32.6 g/dL (32.0-36.0); Mean Corpuscular Hemoglobin 30.4 pg (27.0-31.0); Mean Corpuscular Volume 93.4 fL (78.0-98.0); Mean Platelet Volume 8.4 fL (7.4-10.4); Platelet Count 188 thou/uL (130-400); RBC Distribution Width 15.5 % (11.5-14.5); Red Blood Cell (RBC) Count 3.02 mill/uL (4.20-5.40); White Blood Cell (WBC) Count 9.4 thou/uL (4.8-10.8)
[2021-11-05 05:54] LABS: Anion Gap 10 mmol/L (10-20); BUN (Urea Nitrogen) 28 mg/dL (9.8-20.1); Calc. Creatinine Clearance 58 mL/min (70-130); Calcium 8.1 mg/dL (7.8-10.44); Carbon Dioxide 22 mmol/L (23-31); Chloride 108 mmol/L (98-107); Glucose 99 mg/dL (83-110); Magnesium 1.7 mg/dL (1.6-2.6); Potassium 3.6 mmol/L (3.5-5.1); Sodium 136 mmol/L (136-145)
[2021-11-05] MEDS ORDERED: Magnesium 2 GM/50 ML 2 GM in Premix Bag 1 BAG IVPB SCH (06:15)
[2021-11-05] MEDS: Dexamethasone 4 MG TAB PO SCH (08:52)
[2021-11-05] MEDS: guaiFENesin ER 600 MG TAB PO SCH ×2 (08:53→19:17)
[2021-11-05] MEDS: Benzonatate 100 MG CAP PO SCH ×3 (08:54→19:17)
[2021-11-05] MEDS: Metoprolol Tartrate 25 MG TAB PO SCH ×2 (08:54→19:17)
[2021-11-05] MEDS: Tamsulosin HCl 0.4 MG CAP PO SCH (08:55)
[2021-11-05] MEDS: cefTRIAXone\\ROCEPHIN 2 GM in Sodium Chloride 0.9% 100 ML IVPB SCH (16:38)
[2021-11-05] MEDS: HYDROcodone/Acetaminophen 5/325 mg Tablet PO PRN (18:03)
[2021-11-05] MEDS: Acetaminophen 325 MG TAB PO PRN (21:58)
[2021-11-05] MEDS: ALPRAZolam 0.25 MG TAB PO PRN (21:58)
[2021-11-06] MEDS: HYDROcodone/Acetaminophen 5/325 mg Tablet PO PRN (02:15)
[2021-11-06 04:54] LABS: #Lymphocytes 1.1 thou/uL (1.20-3.40); #Monocytes 0.9 thou/uL (0.11-0.59); #Neutrophils 6.6 thou/uL (1.40-6.50); %Basophils 0.2 % (0.0-1.0); %Eosinophils 0.5 % (0.0-10.0); %Lymphocytes 12.8 % (21.0-51.0); %Monocytes 10.3 % (0.0-10.0); %Neutrophils 76.3 % (42.0-75.0); Hemoglobin 9.6 g/dL (12.0-16.0); Mean Corpuscular HGB CONC 34.8 g/dL (32.0-36.0); Mean Platelet Volume 8.4 fL (7.4-10.4); Platelet Count 183 thou/uL (130-400); RBC Distribution Width 15.5 % (11.5-14.5); White Blood Cell (WBC) Count 8.7 thou/uL (4.8-10.8)
[2021-11-06] MEDS: Amino Acids 4.25 %/Dextrose 5% 2,000 ML IV SCH (05:03)
[2021-11-06 05:12] LABS: Anion Gap 12 mmol/L (10-20); BUN (Urea Nitrogen) 32 mg/dL (9.8-20.1); Calc. Creatinine Clearance 57 mL/min (70-130); Calcium 8.1 mg/dL (7.8-10.44); Carbon Dioxide 19 mmol/L (23-31); Chloride 107 mmol/L (98-107); Glucose 105 mg/dL (83-110); Magnesium 1.8 mg/dL (1.6-2.6); Sodium 134 mmol/L (136-145)
[2021-11-06] MEDS ORDERED: Magnesium 2 GM/50 ML 2 GM in Premix Bag 1 BAG IVPB SCH (05:30)
[2021-11-06] MEDS: Benzonatate 100 MG CAP PO SCH ×3 (08:18→21:45)
[2021-11-06] MEDS: Tamsulosin HCl 0.4 MG CAP PO SCH (08:19)
[2021-11-06] MEDS: Metoprolol Tartrate 25 MG TAB PO SCH ×2 (08:20→21:44)
[2021-11-06] MEDS: Dexamethasone 4 MG TAB PO SCH (08:22)
[2021-11-06] MEDS: guaiFENesin ER 600 MG TAB PO SCH ×2 (08:24→21:45)
[2021-11-06] MEDS: cefTRIAXone\\ROCEPHIN 2 GM in Sodium Chloride 0.9% 100 ML IVPB SCH (16:38)
[2021-11-07 05:25] LABS: Anion Gap 10 mmol/L (10-20); BUN (Urea Nitrogen) 32 mg/dL (9.8-20.1); Calc. Creatinine Clearance 64 mL/min (70-130); Calcium 8.2 mg/dL (7.8-10.44); Carbon Dioxide 20 mmol/L (23-31); Chloride 108 mmol/L (98-107); Glucose 102 mg/dL (83-110); Potassium 3.8 mmol/L (3.5-5.1); Sodium 134 mmol/L (136-145)
[2021-11-07] MEDS: Metoprolol Tartrate 25 MG TAB PO SCH ×2 (09:31→20:11)
[2021-11-07] MEDS: Tamsulosin HCl 0.4 MG CAP PO SCH (09:31)
[2021-11-07] MEDS: Benzonatate 100 MG CAP PO SCH ×3 (09:31→20:11)
[2021-11-07] MEDS: Dexamethasone 4 MG TAB PO SCH (09:32)
[2021-11-07] MEDS: guaiFENesin ER 600 MG TAB PO SCH ×3 (09:32→20:11)
[2021-11-07 10:32] LABS: Bacteria/HPF 1+ HPF (None Seen); Bilirubin Negative (Negative); Blood, Urine 3+ (Negative); Glucose, Urine (Dipstick) Normal (Negative); Ketone, Urine Negative (Negative); Leukocyte 500 Leu/uL (Negative); Nitrite Negative (Negative); Protein, Urine (Dipstick) 70 mg/dL (Neg-Trace); RBC/HPF Greater than 50 HPF (0-3); Specific Gravity, Urine 1.012 (1.002-1.036); Squamous Epithelial 0-3 HPF (0-3); Urobilinogen Normal mg/dL (Less than 2); WBC/HPF Greater than 50 HPF (0-3)
[2021-11-07 10:33] LABS: Clarity Cloudy (Clear)
[2021-11-07 10:34] LABS: Urine Culture Reflex Yes Yes
[2021-11-07] MEDS ORDERED: Furosemide 20 MG/2 ML VIAL SLOW IVP SCH (12:00)
[2021-11-07] MEDS: cefTRIAXone\\ROCEPHIN 2 GM in Sodium Chloride 0.9% 100 ML IVPB SCH ×2 (16:19→16:21)
[2021-11-07] MEDS: Amino Acids 4.25 %/Dextrose 5% 2,000 ML IV SCH (22:42)
[2021-11-08] MEDS: Dexamethasone 4 MG TAB PO SCH (08:54)
[2021-11-08] MEDS: Metoprolol Tartrate 25 MG TAB PO SCH ×2 (08:55→22:11)
[2021-11-08] MEDS: Tamsulosin HCl 0.4 MG CAP PO SCH (08:55)
[2021-11-08] MEDS: Benzonatate 100 MG CAP PO SCH ×3 (08:55→22:11)
[2021-11-08] MEDS: guaiFENesin ER 600 MG TAB PO SCH ×2 (08:58→22:11)
[2021-11-08] MEDS: cefTRIAXone\\ROCEPHIN 2 GM in Sodium Chloride 0.9% 100 ML IVPB SCH (15:59)
[2021-11-09] MEDS: Benzonatate 100 MG CAP PO SCH ×3 (09:20→20:41)
[2021-11-09] MEDS: Metoprolol Tartrate 25 MG TAB PO SCH ×2 (09:20→20:33)
[2021-11-09] MEDS: Dexamethasone 4 MG TAB PO SCH (09:20)
[2021-11-09] MEDS: guaiFENesin ER 600 MG TAB PO SCH ×3 (09:20→20:40)
[2021-11-09] MEDS: Tamsulosin HCl 0.4 MG CAP PO SCH (09:20)
[2021-11-09] MEDS ORDERED: Dexamethasone 4 mg/ml Vial ONE (09:28)
[2021-11-09] MEDS: Acetaminophen 325 MG TAB PO PRN ×2 (09:29→20:29)
[2021-11-09] MEDS ORDERED: Furosemide 40 MG/4 ML VIAL SLOW IVP SCH (13:00)
[2021-11-09] MEDS ORDERED: Albuterol 200 PUFF (6.7GM INHALER) INH PRN (13:23)
[2021-11-09] MEDS: Scopolamine 1.5 mg/72 hour Patch TD SCH (13:27)
[2021-11-09 17:20] LABS: Calcium, Ionized (arterial) 1.13 mmol/L (1.12-1.30); Carboxyhemoglobin (COHb) 0.2 gm% (0.0-3.0); Hemoglobin (Hb) 12.3 g/dL (12.0-16.0); Potassium - ABG Lab 3.08 mmol/L (3.70-5.30)
[2021-11-09 17:22] LABS: CO2 Tension 24.4 mmHg (35.0-45.0); O2 Tension (PaO2), arterial 56.7 mmHg (> 70.0); Puncture Site RRA; pH, Arterial 7.55 (7.35-7.45)
[2021-11-10] MEDS: Acetaminophen 325 MG TAB PO PRN ×3 (03:01→20:30)
[2021-11-10 04:49] LABS: #Eosinphils 0.1 thou/uL (0.0-0.7); #Lymphocytes 0.6 thou/uL (1.20-3.40); #Monocytes 0.9 thou/uL (0.11-0.59); #Neutrophils 10.8 thou/uL (1.40-6.50); %Eosinophils 0.7 % (0.0-10.0); %Lymphocytes 4.9 % (21.0-51.0); %Monocytes 6.9 % (0.0-10.0); %Neutrophils 87.6 % (42.0-75.0); Hemoglobin 10.8 g/dL (12.0-16.0); Mean Corpuscular HGB CONC 33.4 g/dL (32.0-36.0); Mean Corpuscular Hemoglobin 31.4 pg (27.0-31.0); Mean Corpuscular Volume 94.1 fL (78.0-98.0); Mean Platelet Volume 8.2 fL (7.4-10.4); Platelet Count 156 thou/uL (130-400); RBC Distribution Width 17.9 % (11.5-14.5); Red Blood Cell (RBC) Count 3.42 mill/uL (4.20-5.40); White Blood Cell (WBC) Count 12.4 thou/uL (4.8-10.8)
[2021-11-10 05:16] LABS: Anion Gap 15 mmol/L (10-20); BUN (Urea Nitrogen) 34 mg/dL (9.8-20.1); Calc. Creatinine Clearance 48 mL/min (70-130); Calcium 8.6 mg/dL (7.8-10.44); Carbon Dioxide 19 mmol/L (23-31); Chloride 104 mmol/L (98-107); Glucose 88 mg/dL (83-110); Potassium 3.3 mmol/L (3.5-5.1); Sodium 135 mmol/L (136-145)
[2021-11-10] MEDS ORDERED: Potassium Chloride 20 MEQ TAB PO SCH (07:00)
[2021-11-10] MEDS: Benzonatate 100 MG CAP PO SCH ×3 (09:39→20:30)
[2021-11-10] MEDS: Dexamethasone 4 MG TAB PO SCH (09:39)
[2021-11-10] MEDS: guaiFENesin ER 600 MG TAB PO SCH ×2 (09:39→20:30)
[2021-11-10] MEDS: Metoprolol Tartrate 25 MG TAB PO SCH ×2 (09:40→20:30)
[2021-11-10] MEDS: Tamsulosin HCl 0.4 MG CAP PO SCH (09:41)
[2021-11-10] MEDS ORDERED: Megestrol Acetate 40 MG TAB PO SCH (16:00)
[2021-11-11] MEDS: Megestrol Acetate 40 MG TAB PO SCH (09:00)
[2021-11-11] MEDS: Benzonatate 100 MG CAP PO SCH ×2 (09:55→20:50)
[2021-11-11] MEDS: Dexamethasone 4 MG TAB PO SCH (09:55)
[2021-11-11] MEDS: Metoprolol Tartrate 25 MG TAB PO SCH ×2 (09:55→20:50)
[2021-11-11] MEDS: guaiFENesin ER 600 MG TAB PO SCH ×2 (10:04→20:54)
[2021-11-11] MEDS: Tamsulosin HCl 0.4 MG CAP PO SCH (10:04)
[2021-11-11] MEDS: Acetaminophen 325 MG TAB PO PRN (17:07)
[2021-11-11 18:30] LABS: #Basophils 0.1 thou/uL (0.0-0.2); #Lymphocytes 0.3 thou/uL (1.20-3.40); #Monocytes 0.6 thou/uL (0.11-0.59); #Neutrophils 12.5 thou/uL (1.40-6.50); %Eosinophils 0.1 % (0.0-10.0); %Lymphocytes 2.4 % (21.0-51.0); %Monocytes 4.1 % (0.0-10.0); %Neutrophils 92.4 % (42.0-75.0); Hemoglobin 10.3 g/dL (12.0-16.0); Mean Corpuscular HGB CONC 33.7 g/dL (32.0-36.0); Mean Corpuscular Hemoglobin 32.1 pg (27.0-31.0); Mean Corpuscular Volume 95.3 fL (78.0-98.0); Mean Platelet Volume 8.5 fL (7.4-10.4); Platelet Count 125 thou/uL (130-400); RBC Distribution Width 17.8 % (11.5-14.5); Red Blood Cell (RBC) Count 3.22 mill/uL (4.20-5.40); White Blood Cell (WBC) Count 13.6 thou/uL (4.8-10.8)
[2021-11-11 19:16] LABS: Anion Gap 14 mmol/L (10-20); BUN (Urea Nitrogen) 42 mg/dL (9.8-20.1); Calc. Creatinine Clearance 44 mL/min (70-130); Calcium 8.8 mg/dL (7.8-10.44); Carbon Dioxide 21 mmol/L (23-31); Chloride 104 mmol/L (98-107); Glucose 131 mg/dL (83-110); Magnesium 1.6 mg/dL (1.6-2.6); Phosphorus 3.4 mg/dL (2.3-4.7); Potassium 4.7 mmol/L (3.5-5.1); Sodium 134 mmol/L (136-145)
[2021-11-11] MEDS ORDERED: Magnesium 2 GM/50 ML 2 GM in Premix Bag 1 BAG IVPB SCH (21:00)
[2021-11-12] MEDS: Acetaminophen 325 MG TAB PO PRN ×3 (02:07→21:25)
[2021-11-12 05:10] LABS: #Eosinphils 0.1 thou/uL (0.0-0.7); #Lymphocytes 0.6 thou/uL (1.20-3.40); #Monocytes 0.7 thou/uL (0.11-0.59); #Neutrophils 8.7 thou/uL (1.40-6.50); %Basophils 0.1 % (0.0-1.0); %Eosinophils 0.8 % (0.0-10.0); %Lymphocytes 6.3 % (21.0-51.0); %Neutrophils 85.8 % (42.0-75.0); Hemoglobin 10.6 g/dL (12.0-16.0); Mean Corpuscular HGB CONC 32.8 g/dL (32.0-36.0); Mean Corpuscular Hemoglobin 31.6 pg (27.0-31.0); Mean Corpuscular Volume 96.3 fL (78.0-98.0); Mean Platelet Volume 8.8 fL (7.4-10.4); Platelet Count 120 thou/uL (130-400); RBC Distribution Width 18.1 % (11.5-14.5); Red Blood Cell (RBC) Count 3.35 mill/uL (4.20-5.40); White Blood Cell (WBC) Count 10.1 thou/uL (4.8-10.8)
[2021-11-12 05:38] LABS: Anion Gap 13 mmol/L (10-20); BUN (Urea Nitrogen) 36 mg/dL (9.8-20.1); Calc. Creatinine Clearance 48 mL/min (70-130); Calcium 8.8 mg/dL (7.8-10.44); Carbon Dioxide 22 mmol/L (23-31); Chloride 104 mmol/L (98-107); Glucose 94 mg/dL (83-110); Phosphorus 2.4 mg/dL (2.3-4.7); Potassium 3.8 mmol/L (3.5-5.1); Sodium 135 mmol/L (136-145)
[2021-11-12] MEDS ORDERED: Magnesium 2 GM/50 ML 2 GM in Premix Bag 1 BAG IVPB SCH (06:30)
[2021-11-12] MEDS: Metoprolol Tartrate 25 MG TAB PO SCH ×2 (09:22→21:26)
[2021-11-12] MEDS: Dexamethasone 4 MG TAB PO SCH (09:22)
[2021-11-12] MEDS: guaiFENesin ER 600 MG TAB PO SCH ×2 (09:22→21:26)
[2021-11-12] MEDS: Tamsulosin HCl 0.4 MG CAP PO SCH (09:22)
[2021-11-12] MEDS: Benzonatate 100 MG CAP PO SCH ×4 (09:22→21:26)
[2021-11-12] MEDS: Megestrol Acetate 40 MG TAB PO SCH (09:23)
[2021-11-12] MEDS: Scopolamine 1.5 mg/72 hour Patch TD SCH (13:38)
[2021-11-13] MEDS ORDERED: Morphine 4 MG/ML VIAL SLOW IVP SCH (01:45)
[2021-11-13 05:14] LABS: #Lymphocytes 0.7 thou/uL (1.20-3.40); #Monocytes 0.8 thou/uL (0.11-0.59); #Neutrophils 8.9 thou/uL (1.40-6.50); %Eosinophils 0.3 % (0.0-10.0); %Lymphocytes 6.6 % (21.0-51.0); %Monocytes 7.9 % (0.0-10.0); %Neutrophils 85.1 % (42.0-75.0); Hemoglobin 10.2 g/dL (12.0-16.0); Mean Corpuscular HGB CONC 31.7 g/dL (32.0-36.0); Mean Corpuscular Hemoglobin 31.1 pg (27.0-31.0); Mean Corpuscular Volume 98.3 fL (78.0-98.0); Mean Platelet Volume 8.4 fL (7.4-10.4); Platelet Count 109 thou/uL (130-400); Red Blood Cell (RBC) Count 3.28 mill/uL (4.20-5.40); White Blood Cell (WBC) Count 10.4 thou/uL (4.8-10.8)
[2021-11-13 05:38] LABS: Anion Gap 13 mmol/L (10-20); BUN (Urea Nitrogen) 33 mg/dL (9.8-20.1); Calc. Creatinine Clearance 50 mL/min (70-130); Calcium 8.8 mg/dL (7.8-10.44); Carbon Dioxide 22 mmol/L (23-31); Chloride 105 mmol/L (98-107); Glucose 87 mg/dL (83-110); Magnesium 1.8 mg/dL (1.6-2.6); Potassium 4.3 mmol/L (3.5-5.1); Sodium 136 mmol/L (136-145)
[2021-11-13] MEDS ORDERED: Magnesium 2 GM/50 ML 2 GM in Premix Bag 1 BAG IVPB SCH (07:00)
[2021-11-13] MEDS: guaiFENesin ER 600 MG TAB PO SCH ×2 (09:24→21:49)
[2021-11-13] MEDS: Acetaminophen 325 MG TAB PO PRN ×2 (09:25→16:21)
[2021-11-13] MEDS: Tamsulosin HCl 0.4 MG CAP PO SCH (09:29)
[2021-11-13] MEDS: Dexamethasone 4 MG TAB PO SCH (09:30)
[2021-11-13] MEDS: Metoprolol Tartrate 25 MG TAB PO SCH ×3 (09:30→23:33)
[2021-11-13] MEDS: Benzonatate 100 MG CAP PO SCH ×3 (09:30→21:50)
[2021-11-13] MEDS: Megestrol Acetate 40 MG TAB PO SCH (09:32)
[2021-11-13] MEDS: HYDROcodone/Acetaminophen 5/325 mg Tablet PO PRN ×2 (17:38→21:49)
[2021-11-13] MEDS: hydrOXYzine 25 MG TAB PO PRN (17:40)
[2021-11-13] MEDS: Atorvastatin Calcium 40 MG TAB PO SCH (21:50)
[2021-11-14 05:36] LABS: #Eosinphils 0.1 thou/uL (0.0-0.7); #Lymphocytes 0.7 thou/uL (1.20-3.40); #Monocytes 0.6 thou/uL (0.11-0.59); #Neutrophils 9.7 thou/uL (1.40-6.50); %Basophils 0.2 % (0.0-1.0); %Eosinophils 0.5 % (0.0-10.0); %Lymphocytes 6.6 % (21.0-51.0); %Monocytes 5.7 % (0.0-10.0); %Neutrophils 86.9 % (42.0-75.0); Mean Corpuscular HGB CONC 32.2 g/dL (32.0-36.0); Mean Corpuscular Hemoglobin 30.9 pg (27.0-31.0); Mean Corpuscular Volume 95.9 fL (78.0-98.0); Mean Platelet Volume 8.6 fL (7.4-10.4); Platelet Count 89 thou/uL (130-400); RBC Distribution Width 17.9 % (11.5-14.5); Red Blood Cell (RBC) Count 3.24 mill/uL (4.20-5.40); White Blood Cell (WBC) Count 11.1 thou/uL (4.8-10.8)
[2021-11-14 05:38] LABS: Anion Gap 12 mmol/L (10-20); BUN (Urea Nitrogen) 33 mg/dL (9.8-20.1); Calc. Creatinine Clearance 50 mL/min (70-130); Calcium 8.8 mg/dL (7.8-10.44); Carbon Dioxide 23 mmol/L (23-31); Chloride 105 mmol/L (98-107); Glucose 76 mg/dL (83-110); Magnesium 1.5 mg/dL (1.6-2.6); Phosphorus 3.3 mg/dL (2.3-4.7); Potassium 4.2 mmol/L (3.5-5.1); Sodium 136 mmol/L (136-145)
[2021-11-14] MEDS: HYDROcodone/Acetaminophen 5/325 mg Tablet PO PRN ×3 (09:28→21:45)
[2021-11-14] MEDS: Magnesium 2 GM/50 ML 2 GM in Premix Bag 1 BAG IVPB SCH ×2 (09:29→13:02)
[2021-11-14] MEDS: Metoprolol Tartrate 25 MG TAB PO SCH ×2 (09:30→20:37)
[2021-11-14] MEDS: Dexamethasone 4 MG TAB PO SCH (09:30)
[2021-11-14] MEDS: Benzonatate 100 MG CAP PO SCH ×3 (09:30→21:42)
[2021-11-14] MEDS: Megestrol Acetate 40 MG TAB PO SCH ×2 (09:31→09:49)
[2021-11-14] MEDS: guaiFENesin ER 600 MG TAB PO SCH ×3 (09:31→21:43)
[2021-11-14] MEDS: Tamsulosin HCl 0.4 MG CAP PO SCH (09:31)
[2021-11-14] MEDS: Cefepime 2 GM in Sodium Chloride 0.9% 100 ML IVPB SCH (18:25)
[2021-11-14] MEDS: Atorvastatin Calcium 40 MG TAB PO SCH (21:42)
[2021-11-14] MEDS: Linezolid 600 MG in Premix Bag 1 BAG IVPB SCH (22:06)
[2021-11-15 06:34] LABS: Hemoglobin 10.2 g/dL (12.0-16.0); MDiff Complete? YES; Manual Diff?? YES; Mean Corpuscular HGB CONC 33.7 g/dL (32.0-36.0); Mean Corpuscular Hemoglobin 32.5 pg (27.0-31.0); Mean Corpuscular Volume 96.6 fL (78.0-98.0); Platelet Count 82 thou/uL (130-400); RBC Distribution Width 17.8 % (11.5-14.5); Red Blood Cell (RBC) Count 3.13 mill/uL (4.20-5.40); White Blood Cell (WBC) Count 9.5 thou/uL (4.8-10.8)
[2021-11-15 06:35] LABS: Band 11 % (5-11); Hypochromia SLIGHT = 6-15 cells (100X) (0-5/hpf); Lymphocytes 4 % (21-51); Monocytes 6 % (0-10); Neutrophil 79 % (42-75); Nucleated RBC 2 % (0); Platelet Morphology Comment Appears Decreased
[2021-11-15] MEDS: Cefepime 2 GM in Sodium Chloride 0.9% 100 ML IVPB SCH ×2 (06:47→19:11)
[2021-11-15] MEDS: Dexamethasone 4 MG TAB PO SCH (07:40)
[2021-11-15] MEDS: HYDROcodone/Acetaminophen 5/325 mg Tablet PO PRN ×2 (07:41→13:14)
[2021-11-15 08:38] LABS: Anion Gap 14 mmol/L (10-20); BUN (Urea Nitrogen) 31 mg/dL (9.8-20.1); Calc. Creatinine Clearance 50 mL/min (70-130); Calcium 8.7 mg/dL (7.8-10.44); Carbon Dioxide 22 mmol/L (23-31); Chloride 101 mmol/L (98-107); Glucose 83 mg/dL (83-110); Phosphorus 3.1 mg/dL (2.3-4.7); Potassium 4.3 mmol/L (3.5-5.1); Sodium 133 mmol/L (136-145)
[2021-11-15] MEDS ORDERED: Magnesium 2 GM/50 ML 2 GM in Premix Bag 1 BAG IVPB SCH (09:00)
[2021-11-15] MEDS: Linezolid 600 MG in Premix Bag 1 BAG IVPB SCH ×2 (09:08→21:44)
[2021-11-15] MEDS: Benzonatate 100 MG CAP PO SCH ×3 (09:11→21:44)
[2021-11-15] MEDS: Metoprolol Tartrate 25 MG TAB PO SCH ×2 (09:12→21:44)
[2021-11-15] MEDS: Megestrol Acetate 40 MG TAB PO SCH (09:12)
[2021-11-15] MEDS: guaiFENesin ER 600 MG TAB PO SCH ×2 (09:12→21:44)
[2021-11-15] MEDS: Tamsulosin HCl 0.4 MG CAP PO SCH (09:12)
[2021-11-15] MEDS: Scopolamine 1.5 mg/72 hour Patch TD SCH (13:24)
[2021-11-15 16:14] VITALS: BMI 18.4
[2021-11-15] MEDS: Atorvastatin Calcium 40 MG TAB PO SCH (21:44)
[2021-11-15] MEDS: oxyCODONE 5 MG TAB PO PRN (23:46)
[2021-11-16] MEDS: hydrOXYzine 25 MG TAB PO PRN ×3 (02:09→20:17)
[2021-11-16 05:42] LABS: #Eosinphils 0.1 thou/uL (0.0-0.7); #Lymphocytes 0.5 thou/uL (1.20-3.40); #Monocytes 0.4 thou/uL (0.11-0.59); #Neutrophils 7.1 thou/uL (1.40-6.50); %Lymphocytes 6.4 % (21.0-51.0); %Monocytes 4.7 % (0.0-10.0); %Neutrophils 87.8 % (42.0-75.0); Hemoglobin 9.3 g/dL (12.0-16.0); Mean Corpuscular HGB CONC 32.6 g/dL (32.0-36.0); Mean Corpuscular Hemoglobin 31.6 pg (27.0-31.0); Mean Corpuscular Volume 96.8 fL (78.0-98.0); Mean Platelet Volume 8.5 fL (7.4-10.4); Platelet Count 69 thou/uL (130-400); RBC Distribution Width 17.8 % (11.5-14.5); Red Blood Cell (RBC) Count 2.93 mill/uL (4.20-5.40)
[2021-11-16 05:46] LABS: Anion Gap 10 mmol/L (10-20); BUN (Urea Nitrogen) 20 mg/dL (9.8-20.1); Calc. Creatinine Clearance 54 mL/min (70-130); Calcium 8.4 mg/dL (7.8-10.44); Carbon Dioxide 24 mmol/L (23-31); Chloride 101 mmol/L (98-107); Glucose 72 mg/dL (83-110); Magnesium 1.7 mg/dL (1.6-2.6); Phosphorus 2.9 mg/dL (2.3-4.7); Potassium 4.3 mmol/L (3.5-5.1); Sodium 131 mmol/L (136-145)
[2021-11-16] MEDS ORDERED: Magnesium 2 GM/50 ML 2 GM in Premix Bag 1 BAG IVPB SCH (06:00)
[2021-11-16] MEDS: Cefepime 2 GM in Sodium Chloride 0.9% 100 ML IVPB SCH ×2 (06:38→17:44)
[2021-11-16] MEDS: HYDROcodone/Acetaminophen 5/325 mg Tablet PO PRN ×2 (09:19→20:12)
[2021-11-16] MEDS: Metoprolol Tartrate 25 MG TAB PO SCH ×2 (09:20→20:24)
[2021-11-16] MEDS: Tamsulosin HCl 0.4 MG CAP PO SCH (09:20)
[2021-11-16] MEDS: Megestrol Acetate 40 MG TAB PO SCH (09:20)
[2021-11-16] MEDS: guaiFENesin ER 600 MG TAB PO SCH ×2 (09:20→20:17)
[2021-11-16] MEDS: Enoxaparin Sodium 40 MG/0.4 ML SYRINGE SC SCH ×2 (09:20→09:34)
[2021-11-16] MEDS: Linezolid 600 MG in Premix Bag 1 BAG IVPB SCH ×2 (09:21→20:15)
[2021-11-16] MEDS: Dexamethasone 4 MG TAB PO SCH (09:21)
[2021-11-16] MEDS: Benzonatate 100 MG CAP PO SCH ×3 (09:22→20:17)
[2021-11-16] MEDS: Atorvastatin Calcium 40 MG TAB PO SCH (20:17)
[2021-11-16] MEDS: oxyCODONE 5 MG TAB PO PRN (22:52)
[2021-11-17] MEDS: Cefepime 2 GM in Sodium Chloride 0.9% 100 ML IVPB SCH ×2 (06:10→17:19)
[2021-11-17 06:47] LABS: Hemoglobin 9.2 g/dL (12.0-16.0); Mean Corpuscular HGB CONC 32.1 g/dL (32.0-36.0); Mean Corpuscular Hemoglobin 31.7 pg (27.0-31.0); Mean Corpuscular Volume 98.7 fL (78.0-98.0); Mean Platelet Volume 8.8 fL (7.4-10.4); Platelet Count 61 thou/uL (130-400); RBC Distribution Width 17.6 % (11.5-14.5); White Blood Cell (WBC) Count 7.2 thou/uL (4.8-10.8)
[2021-11-17 06:50] LABS: Anion Gap 11 mmol/L (10-20); BUN (Urea Nitrogen) 20 mg/dL (9.8-20.1); Calc. Creatinine Clearance 53 mL/min (70-130); Calcium 8.3 mg/dL (7.8-10.44); Carbon Dioxide 22 mmol/L (23-31); Chloride 103 mmol/L (98-107); Glucose 67 mg/dL (83-110); Magnesium 1.6 mg/dL (1.6-2.6); Phosphorus 2.8 mg/dL (2.3-4.7); Potassium 4.1 mmol/L (3.5-5.1); Sodium 132 mmol/L (136-145)
[2021-11-17] MEDS ORDERED: Magnesium 2 GM/50 ML 2 GM in Premix Bag 1 BAG IVPB SCH (08:00)
[2021-11-17] MEDS: HYDROcodone/Acetaminophen 5/325 mg Tablet PO PRN ×2 (08:15→20:31)
[2021-11-17] MEDS: guaiFENesin ER 600 MG TAB PO SCH ×2 (08:16→20:27)
[2021-11-17] MEDS: Metoprolol Tartrate 25 MG TAB PO SCH ×2 (08:16→20:27)
[2021-11-17] MEDS: Benzonatate 100 MG CAP PO SCH ×3 (08:16→20:27)
[2021-11-17] MEDS: Megestrol Acetate 40 MG TAB PO SCH (08:16)
[2021-11-17] MEDS: Tamsulosin HCl 0.4 MG CAP PO SCH (08:16)
[2021-11-17] MEDS: Linezolid 600 MG in Premix Bag 1 BAG IVPB SCH ×2 (08:17→20:25)
[2021-11-17] MEDS: Enoxaparin Sodium 40 MG/0.4 ML SYRINGE SC SCH (08:23)
[2021-11-17] MEDS: hydrOXYzine 25 MG TAB PO PRN ×2 (08:29→20:27)
[2021-11-17 08:39] LABS: Band 2 % (5-11); Eosinophils 1 % (0-10); Lymphocytes 9 % (21-51); MDiff Complete? YES; Monocytes 8 % (0-10); Neutrophil 80 % (42-75); Platelet Morphology Comment Appears Decreased; Polychromasia SLIGHT = 2-3 cells (100X) (0-2/hpf)
[2021-11-17] MEDS: oxyCODONE 5 MG TAB PO PRN (12:28)
[2021-11-17] MEDS: AA 4.25 %/CALCIUM/LYTES/D5W 2,000 ML IV SCH (16:40)
[2021-11-17] MEDS: Atorvastatin Calcium 40 MG TAB PO SCH (20:27)
[2021-11-18 05:01] LABS: Iron 31 ug/dL (50-170); Iron Binding Capacity, Total 181 mcg/dL (265-497)
[2021-11-18 05:03] LABS: Anion Gap 9 mmol/L (10-20); BUN (Urea Nitrogen) 22 mg/dL (9.8-20.1); Calc. Creatinine Clearance 53 mL/min (70-130); Calcium 8.2 mg/dL (7.8-10.44); Carbon Dioxide 24 mmol/L (23-31); Chloride 104 mmol/L (98-107); Glucose 125 mg/dL (83-110); Iron 32 ug/dL (50-170); Iron Binding Capacity, Total 183 mcg/dL (265-497); Magnesium 1.7 mg/dL (1.6-2.6); Phosphorus 2.6 mg/dL (2.3-4.7); Potassium 4.2 mmol/L (3.5-5.1); Sodium 133 mmol/L (136-145)
[2021-11-18] MEDS ORDERED: Magnesium 2 GM/50 ML 2 GM in Premix Bag 1 BAG IVPB SCH ×2 (05:15→07:30)
[2021-11-18 05:25] LABS: Ferritin 979.67 ng/mL (10-291)
[2021-11-18] MEDS: HYDROcodone/Acetaminophen 5/325 mg Tablet PO PRN ×2 (05:29→19:56)
[2021-11-18] MEDS: Cefepime 2 GM in Sodium Chloride 0.9% 100 ML IVPB SCH ×2 (05:31→17:25)
[2021-11-18 05:56] LABS: #Eosinphils 0.2 thou/uL (0.0-0.7); #Lymphocytes 0.5 thou/uL (1.20-3.40); #Monocytes 0.3 thou/uL (0.11-0.59); #Neutrophils 7.5 thou/uL (1.40-6.50); %Basophils 0.1 % (0.0-1.0); %Eosinophils 2.1 % (0.0-10.0); %Lymphocytes 5.8 % (21.0-51.0); %Neutrophils 88.1 % (42.0-75.0); Hemoglobin 9.9 g/dL (12.0-16.0); Mean Corpuscular Hemoglobin 32.6 pg (27.0-31.0); Mean Platelet Volume 9.4 fL (7.4-10.4); Platelet Count 60 thou/uL (130-400); RBC Distribution Width 17.8 % (11.5-14.5); Red Blood Cell (RBC) Count 3.04 mill/uL (4.20-5.40); White Blood Cell (WBC) Count 8.5 thou/uL (4.8-10.8)
[2021-11-18] MEDS: oxyCODONE 5 MG TAB PO PRN ×3 (08:03→17:38)
[2021-11-18] MEDS: guaiFENesin ER 600 MG TAB PO SCH ×2 (08:07→20:01)
[2021-11-18] MEDS: Tamsulosin HCl 0.4 MG CAP PO SCH (08:07)
[2021-11-18] MEDS: Megestrol Acetate 40 MG TAB PO SCH (08:07)
[2021-11-18] MEDS: Metoprolol Tartrate 25 MG TAB PO SCH ×2 (08:07→20:02)
[2021-11-18] MEDS: Benzonatate 100 MG CAP PO SCH ×3 (08:07→19:58)
[2021-11-18] MEDS: hydrOXYzine 25 MG TAB PO PRN ×3 (08:19→19:57)
[2021-11-18] MEDS ORDERED: Amino Acids 4.25 %/Dextrose 5% 2,000 ML BAG IV SCH (09:00)
[2021-11-18] MEDS: Linezolid 600 MG in Premix Bag 1 BAG IVPB SCH ×2 (09:53→20:13)
[2021-11-18] MEDS: Enoxaparin Sodium 40 MG/0.4 ML SYRINGE SC SCH (11:09)
[2021-11-18] MEDS: Scopolamine 1.5 mg/72 hour Patch TD SCH (11:56)
[2021-11-18 18:27] LABS: Bacteria/HPF 2+ HPF (None Seen); Bilirubin Negative (Negative); Blood, Urine Negative (Negative); Clarity Clear (Clear); Glucose, Urine (Dipstick) Normal (Negative); Ketone, Urine Negative (Negative); Leukocyte 75 Leu/uL (Negative); Nitrite Negative (Negative); Protein, Urine (Dipstick) Negative (Neg-Trace); RBC/HPF 0-3 HPF (0-3); Urobilinogen Normal mg/dL (Less than 2)
[2021-11-18 18:29] LABS: Urine Culture Reflex No No
[2021-11-18 18:30] LABS: Renal Epithelial 0-3 HPF (None Seen); Transitional Epithelial 0-3 HPF (None Seen)
[2021-11-18] MEDS: AA 4.25 %/CALCIUM/LYTES/D5W 2,000 ML IV SCH (19:53)
[2021-11-18] MEDS: D5W-AA 4.25% with LYTES 1,000 ML IV SCH (19:54)
[2021-11-18] MEDS: Atorvastatin Calcium 40 MG TAB PO SCH (19:57)
[2021-11-19] MEDS: oxyCODONE 5 MG TAB PO PRN ×2 (02:07→12:37)
[2021-11-19] MEDS: Cefepime 2 GM in Sodium Chloride 0.9% 100 ML IVPB SCH ×2 (06:05→17:11)
[2021-11-19] MEDS: hydrOXYzine 25 MG TAB PO PRN (07:42)
[2021-11-19] MEDS: Linezolid 600 MG in Premix Bag 1 BAG IVPB SCH ×2 (08:27→21:02)
[2021-11-19] MEDS: Metoprolol Tartrate 25 MG TAB PO SCH ×2 (08:38→21:02)
[2021-11-19] MEDS: guaiFENesin ER 600 MG TAB PO SCH ×3 (08:38→21:41)
[2021-11-19] MEDS: Tamsulosin HCl 0.4 MG CAP PO SCH (08:38)
[2021-11-19] MEDS: Lorazepam 0.5 MG TAB PO PRN ×3 (08:38→21:02)
[2021-11-19] MEDS: Megestrol Acetate 40 MG TAB PO SCH (08:38)
[2021-11-19] MEDS: Benzonatate 100 MG CAP PO SCH ×3 (08:39→21:02)
[2021-11-19] MEDS: Enoxaparin Sodium 40 MG/0.4 ML SYRINGE SC SCH (10:01)
[2021-11-19] MEDS: D5W-AA 4.25% with LYTES 1,000 ML IV SCH (10:52)
[2021-11-19] MEDS ORDERED: Magnesium Citrate 300 ML BOT PO SCH (11:00)
[2021-11-19] MEDS ORDERED: Bisacodyl 10 MG SUPP PR SCH (11:00)
[2021-11-19] MEDS ORDERED: Haloperidol Lactate 5 MG/ML VIAL SLOW IVP SCH (12:45)
[2021-11-19] MEDS: Atorvastatin Calcium 40 MG TAB PO SCH ×2 (21:02→21:42)
[2021-11-20] MEDS: D5W-AA 4.25% with LYTES 1,000 ML IV SCH ×2 (02:05→16:15)
[2021-11-20] MEDS: Cefepime 2 GM in Sodium Chloride 0.9% 100 ML IVPB SCH ×2 (06:36→17:32)
[2021-11-20] MEDS: Benzonatate 100 MG CAP PO SCH ×3 (08:16→20:29)
[2021-11-20] MEDS: Metoprolol Tartrate 25 MG TAB PO SCH ×2 (08:16→20:28)
[2021-11-20] MEDS: Enoxaparin Sodium 40 MG/0.4 ML SYRINGE SC SCH (08:16)
[2021-11-20] MEDS: Megestrol Acetate 40 MG TAB PO SCH (08:16)
[2021-11-20] MEDS: guaiFENesin ER 600 MG TAB PO SCH ×3 (08:16→20:48)
[2021-11-20] MEDS: Tamsulosin HCl 0.4 MG CAP PO SCH (08:17)
[2021-11-20] MEDS: Linezolid 600 MG in Premix Bag 1 BAG IVPB SCH ×2 (08:17→20:28)
[2021-11-20] MEDS: oxyCODONE 5 MG TAB PO PRN (17:31)
[2021-11-20] MEDS: Lorazepam 0.5 MG TAB PO PRN (17:31)
[2021-11-20] MEDS: Atorvastatin Calcium 40 MG TAB PO SCH (20:29)
[2021-11-21] MEDS: Cefepime 2 GM in Sodium Chloride 0.9% 100 ML IVPB SCH ×2 (05:34→18:39)
[2021-11-21] MEDS: D5W-AA 4.25% with LYTES 1,000 ML IV SCH ×2 (05:35→15:21)
[2021-11-21] MEDS: Lorazepam 0.5 MG TAB PO PRN ×2 (05:41→20:39)
[2021-11-21] MEDS: oxyCODONE 5 MG TAB PO PRN ×3 (07:30→20:45)
[2021-11-21] MEDS: Metoprolol Tartrate 25 MG TAB PO SCH ×2 (08:28→20:39)
[2021-11-21] MEDS: Tamsulosin HCl 0.4 MG CAP PO SCH (08:35)
[2021-11-21] MEDS: Linezolid 600 MG in Premix Bag 1 BAG IVPB SCH ×2 (08:40→20:38)
[2021-11-21] MEDS: Enoxaparin Sodium 40 MG/0.4 ML SYRINGE SC SCH (08:45)
[2021-11-21] MEDS: Megestrol Acetate 40 MG TAB PO SCH (09:56)
[2021-11-21] MEDS: Benzonatate 100 MG CAP PO SCH ×3 (09:56→20:49)
[2021-11-21] MEDS: guaiFENesin ER 600 MG TAB PO SCH ×3 (09:59→20:48)
[2021-11-21] MEDS: Scopolamine 1.5 mg/72 hour Patch TD SCH (13:02)
[2021-11-21] MEDS: Atorvastatin Calcium 40 MG TAB PO SCH ×2 (20:39→20:49)
[2021-11-22] MEDS: D5W-AA 4.25% with LYTES 1,000 ML IV SCH (01:34)
[2021-11-22] MEDS: Lorazepam 0.5 MG TAB PO PRN ×2 (05:34→14:53)
[2021-11-22] MEDS: Cefepime 2 GM in Sodium Chloride 0.9% 100 ML IVPB SCH (05:34)
[2021-11-22] MEDS: Linezolid 600 MG in Premix Bag 1 BAG IVPB SCH (08:36)
[2021-11-22] MEDS: Metoprolol Tartrate 25 MG TAB PO SCH (08:36)
[2021-11-22] MEDS: Tamsulosin HCl 0.4 MG CAP PO SCH (08:38)
[2021-11-22] MEDS: Megestrol Acetate 40 MG TAB PO SCH (08:39)
[2021-11-22] MEDS: Benzonatate 100 MG CAP PO SCH (08:39)
[2021-11-22] MEDS: Enoxaparin Sodium 40 MG/0.4 ML SYRINGE SC SCH (08:41)
[2021-11-22] MEDS: guaiFENesin ER 600 MG TAB PO SCH (08:42)
[2021-11-22 09:32] VITALS: BP 117/65; TEMP 97.3
[2021-11-22] MEDS: HYDROcodone/Acetaminophen 5/325 mg Tablet PO PRN (14:53)
== END 2021-11-22 16:26 | DRG 871 ==
LOC: ERS 10:14 → ERHOLD 14:16 → 2NO 10-25 04:06 → 2SW 10-31 18:47 → 2NO 11-05 20:29 → CCU 11-14 11:05 → MSONC 11-15 16:24
PROVIDERS: ADMIT Internal Medicine Hematology & Oncology; ATTEND Family Medicine
PROC: 0T9B70Z Drainage of Bladder with Drainage Device, Via Natural or Artificial Opening (ICD-10-PCS; principal; 2021-10-23)
PROC: XW033E5 Introduction of Remdesivir Anti-infective into Peripheral Vein, Percutaneous Approach, New Technology Group 5 (ICD-10-PCS; 2021-10-25)
PROC: 8E0ZXY6 Isolation (ICD-10-PCS; 2021-10-25)
PROC: 3E0DX3Z Introduction of Anti-inflammatory into Mouth and Pharynx, External Approach (ICD-10-PCS; 2021-10-27)
DX: A40.1 Sepsis due to streptococcus, group B (principal); A40.3 Sepsis due to Streptococcus pneumoniae; J18.9 Pneumonia, unspecified organism; J96.01 Acute respiratory failure with hypoxia; D61.810 Antineoplastic chemotherapy induced pancytopenia; U07.1 COVID-19; J12.82 Pneumonia due to coronavirus disease 2019; E43 Unspecified severe protein-calorie malnutrition; L89.893 Pressure ulcer of other site, stage 3; I47.1 Supraventricular tachycardia; N17.9 Acute kidney failure, unspecified; E87.2 Acidosis; C34.12 Malignant neoplasm of upper lobe, left bronchus or lung; N30.00 Acute cystitis without hematuria; I50.32 Chronic diastolic (congestive) heart failure; Z68.1 Body mass index [BMI] 19.9 or less, adult; I13.0 Hypertensive heart and chronic kidney disease with heart failure and stage 1 through stage 4 chronic kidney disease, or unspecified chronic kidney disease; Z51.5 Encounter for palliative care; R65.20 Severe sepsis without septic shock; F17.210 Nicotine dependence, cigarettes, uncomplicated; Z66 Do not resuscitate; D70.1 Agranulocytosis secondary to cancer chemotherapy; E83.42 Hypomagnesemia; N18.30 Chronic kidney disease, stage 3 unspecified; R33.9 Retention of urine, unspecified; N32.89 Other specified disorders of bladder; E78.5 Hyperlipidemia, unspecified; I25.10 Atherosclerotic heart disease of native coronary artery without angina pectoris; I73.9 Peripheral vascular disease, unspecified; R13.10 Dysphagia, unspecified; B95.2 Enterococcus as the cause of diseases classified elsewhere; F41.9 Anxiety disorder, unspecified; E87.6 Hypokalemia; S51.012A Laceration without foreign body of left elbow, initial encounter; W19.XXXA Unspecified fall, initial encounter; Y92.230 Patient room in hospital as the place of occurrence of the external cause; S60.041A Contusion of right ring finger without damage to nail, initial encounter; S60.051A Contusion of right little finger without damage to nail, initial encounter; T45.1X5A Adverse effect of antineoplastic and immunosuppressive drugs, initial encounter; E78.00 Pure hypercholesterolemia, unspecified; E86.0 Dehydration; Z90.49 Acquired absence of other specified parts of digestive tract; Z90.710 Acquired absence of both cervix and uterus; Z98.890 Other specified postprocedural states; Z85.3 Personal history of malignant neoplasm of breast; Z92.21 Personal history of antineoplastic chemotherapy; Z88.2 Allergy status to sulfonamides; Z91.048 Other nonmedicinal substance allergy status; Z95.820 Peripheral vascular angioplasty status with implants and grafts; Z83.3 Family history of diabetes mellitus; Z80.9 Family history of malignant neoplasm, unspecified; Z82.3 Family history of stroke; Z84.89 Family history of other specified conditions; Z79.899 Other long term (current) drug therapy; Z79.52 Long term (current) use of systemic steroids
CPT/HCPCS: 36415; 36600; 51702; 70450; 71045; 71275; 80048; 80053; 81001; 81003; 81015; 82550; 82607; 82728; 82746; 82805; 83540; 83550; 83605; 83735; 83880; 84100; 84134; 84443; 84484; 85007; 85025; 85027; 85060; 85610; 85730; 86140; 86769; 87040; 87077; 87081; 87086; 87149; 87186; 93005; 93010; 93306; 94760; 96365; 96366; 96367; 96375; C9113; J0248; J0692; J0696; J1100; J1630; J1642; J1650; J1940; J2020; J2270; J2358; J2920; J3370; J3475; J3480; J3490; J7050; J8540; Q9967; S0028; S0179; U0003; U0005